=== PATIENT | female | born 1985 ===

== ENCOUNTER 2017-02-11 16:50 | Inpatient (IN) | payer MEDICAID, OTHER, SELFPAY ==
[2017-02-11 19:07] VITALS: BMI 24.7
[2017-02-11 20:12] LABS: BASO % 0.5 % (0.0-2.0); EOS % 0.4 % (0.0-4.0); HEMATOCRIT 34.1 % (34.0-47.0); LYMPH # 2.5 K/uL (1.0-4.3); LYMPH % 31.5 % (20.0-40.0); MEAN CELL VOLUME 77.6 fl (81.0-99.0); MEAN CORPUSCULAR HEMOGLOBIN 24.5 pg (27.0-31.0); MEAN CORPUSCULAR HGB CONC 31.6 g/dL (33.0-37.0); MEAN PLATELET VOLUME 11.1 fl (7.2-11.7); MONO # 0.5 K/uL (0.0-0.8); MONO % 5.7 % (0.0-10.0); NEUT % 61.9 % (50.0-75.0); NRBC % 0.1 % (0.0-0.0); RED CELL DISTRIBUTION WIDTH 16.7 % (11.5-14.5)
[2017-02-11] MEDS ORDERED: Lactated Ringer's 1,000 ML IV SCH (23:45)
[2017-02-11] MEDS ORDERED: Oxytocin 30 units/LR 500ML 30 U/500 ML BAG IV ONE (23:52)
[2017-02-12] MEDS ORDERED: Lidocaine 1% Inj (20ml) ONE (03:27)
[2017-02-12] MEDS ORDERED: Lactated Ringer's 1,000 ML IV SCH (04:27)
--- NOTE | 2017-02-12 09:08 | OBDS ---
DELIVERY PERSONNEL Delivery Doctor: Yulia Kennedy MD Food Safety Technician: Ambika Villa RN MATERNAL INFORMATION Delivery Anesthesia: None Medications in Delivery: NONE Estimated Blood Loss (ml): 200 Placenta Cultured: No Maternal Complications: None Provider Comments: Spontaneous vaginal delivery. Patient delivered viable with Apgars of 9 and 9 at one and 5 minutes respectively. d elivered over intact perineum, no lacerations. Placenta delivered spontaneously. Uterus firm and appr opriately hemostatic following delivery. No complications. Estimated blood loss 200 mL LABOR SUMMARY EDC: 02/24/2017 00:00 No. Babies in Womb: 1 Attempted: No Labor Anesthesia: None LABOR INFORMATION Reason for Induction: Premature Rupture of Membranes Onset of Labor: 02/11/2017 06:00 Complete Dilatation: 02/12/2017 03:26 Oxytocin: N/A Group B Beta Strep: Negative Antibiotics # of Doses: 0 Steroids Given: None Reason Steroids Not Administered: Not Applicable MEMBRANES Membranes Rupture Method: Spontaneous Rupture of Membranes: 02/11/2017 06:00 Length of Rupture (hrs): 21.58 Amniotic Fluid Color: Clear Amniotic Fluid Amount: Moderate Amniotic Fluid Odor: Normal STAGES OF LABOR Stage 1 hrs: 21 Stage 1 min: 26 Stage 2 hrs: 0 Stage 2 min: 9 Stage 3 hrs: 0 Stage 3 min: 3 Total Time in Labor hrs: 21 Total Time in Labor min: 38 VAGINAL DELIVERY Episiotomy: None Laceration Extension: N/A Laceration Type: None Laceration Repair: Not Applicable Initial Vag Sponge Count: 5 Final Vag Sponge Count: 5 Initial Vag Sharps Count: 0 Final Vag Sharps Count: 0 Sponge Count Correct: Yes BABY A INFORMATION Infant Delivery Date/Time: 02/12/2017 03:35 Method of Delivery: Vaginal Born in Route : No : N/A Forceps: N/A Vacuum Extraction: N/A Shoulder Dystocia : No SHOULDER DYSTOCIA BABY A Infant Delivery Date/Time: 02/12/2017 03:35 PRESENTATION/POSITION BABY A Presentation: Cephalic Cephalic Presentation: Vertex Breech Presentation: N/A PLACENTA INFORMATION BABY A Placenta Delivery Time : 02/12/2017 03:38 Placenta Method of Delivery: Spontaneous Placenta Status: Delivered SCORES BABY A Heart Rate 1 min: >100 bpm Resp Effort 1 min: Good Cry Reflex Irritability 1 min: Cough or Sneeze or Pulls Away Muscle Tone 1 min: Active Motion Color 1 min: Body [place], Extremities Blue Resuscitation Effort 1 min: Tactile Stimulation SCORE 1 MIN: 9 Heart Rate 5 min: >100 bpm Resp Effort 5 min: Good Cry Reflex Irritability 5 min: Cough or Sneeze or Pulls Away Muscle Tone 5 min: Active Motion Color 5 min: Body [place], Extremities Blue Resuscitation Effort 5 min: N/A SCORE 5 MIN: 9 INFANT INFORMATION BABY A Gestational Age at Delivery: 38.2 Gestational Status: Term Outcome : Liveborn Infant Condition : Stable Infant Sex: Male IDENTIFICATION/MEDS BABY A ID Band Number: [id number] ID Band Location: Left Leg; Left Arm WEIGHT/LENGTH BABY A Infant Birthweight (gms): 2675 Infant Weight (lb): 5 Infant Weight (oz): 14 CORD INFORMATION BABY A No. Cord Vessels: 3 Nuchal Cord : N/A Suction: Mouth; Nose ASSESSMENT BABY A Infant Complications: None Physical Findings at Delivery: Within Normal Limits Infant Respirations: Appears Normal Solderer Assembler/ALS Called : No Transferred To: Remains with Mother
[2017-02-12] MEDS ORDERED: Influenza Vaccine 18yr & older 0.5 ML/45 MCG SYR IM ONE (09:30)
[2017-02-13] MEDS ORDERED: Influenza Vaccine 18yr & older 0.5 ML/45 MCG SYR IM ONE (10:00)
--- NOTE | 2017-02-13 10:33 | OBPPN ---
Datetime: 02/13/2017 06:33 PP Pain Prov: Within normal limits PP Nausea Prov: Denies PP Flatus Prov: Yes PP BM Prov: Yes PP Breasts Prov: Not Done PP Heart Prov: Normal PP Lungs Prov: Normal PP Abdomen/Uterus Prov: Normal PP Lochia Prov: Normal PP Vulva/Perineum Prov: Not Done PP CVA Tenderness Prov: Normal PP Extremities Prov: Normal PP C/S Incision Prov: Not Applicable PP Progress Prov: Normal PP Impression Prov: Normal progression PP Plan Prov: Continue present management PP Progress Note Prov: 31 y/o now seen and examined at bedside. Patient had uneventful overnig ht. Patient reports mild pelvic pain controlled w/ pain meds. OOB/Ambulating w/o dizziness. Breast /bottle feeding w/o difficulty. Tolerating PO diet well. Lochia is less than menses in volume. Voi ding freely w/ no blood noted. Reports bowel movement. Denies fevers, chills, n/v/d, CP/SOB, lighth eadedness and calf pain. PE: GEN: A_O, resting comfortably in bed, NAD Lung: CTA B/L, no wheezing, rhonchi, or rales CVS: S1, S2 wnl, RRR Abd: +BS, firm fundus below umbilicus. EXT: no edema, negative [place], calves non-tender Assessment: 31 y/o now s/p on 02/12/2017 @ 03:35 tolerating pain w/ medication, tolerati ng oral intake, adequate urine output, doing well on PPD1. Plan: Percocet 5/325 mg 1-2 tabs PO Q6h prn for mod/severe pain. Ibuprofen 600 mg 1 tab Q6h PO pr n for mild pain. Encourage breast feeding and ambulation. Mat Corral M.D. [employer] PGY-1 obh addendum: pt seen _ examined by me. agree w/ above assessment and plan. IP PP Procedures: None Vital Signs Provider PP: Reviewed; Within Normal Limits
[2017-02-13 19:37] LABS: HEMATOCRIT 33.2 % (34.0-47.0); MEAN CELL VOLUME 77.9 fl (81.0-99.0); MEAN CORPUSCULAR HEMOGLOBIN 24.6 pg (27.0-31.0); MEAN CORPUSCULAR HGB CONC 31.6 g/dL (33.0-37.0); RED CELL DISTRIBUTION WIDTH 17.1 % (11.5-14.5); WHITE BLOOD COUNT 10.5 K/uL (4.8-10.8)
--- NOTE | 2017-02-14 08:42 | OBPPN ---
Datetime: 02/14/2017 07:05 PP Pain Prov: Within normal limits PP Nausea Prov: Denies PP Flatus Prov: No PP BM Prov: No PP Heart Prov: Normal PP Lungs Prov: Normal PP Abdomen/Uterus Prov: Normal PP Lochia Prov: Normal PP CVA Tenderness Prov: Normal PP Extremities Prov: Normal PP C/S Incision Prov: Not Applicable PP Progress Prov: Normal PP Impression Prov: Normal progression PP Plan Prov: Continue present management PP Progress Note Prov: 31 y/o now PPD2 seen and examined at bedside. Patient had uneventful ov ernight. Patient reports mild pelvic pain controlled w/ pain meds. OOB/Ambulating w/o dizziness. B reast/bottle feeding w/o difficulty. Tolerating PO diet well. Lochia is less than menses in volume. Voiding freely w/ no blood noted. Reports bowel movement. Denies fevers, chills, n/v/d, CP/SOB, l ightheadedness and calf pain. Assessment: 31 y/o now s/p on 02/12/2017 @ 03:35 tolerating pain w/ medication, tolerati ng oral intake, adequate urine output, doing well on PPD2. Plan: Ibuprofen 600 mg 1 tab Q6h PO prn for mild pain. Encourage breast feeding and ambulation. - PAtient is stable for discharge. Follow up with PMD for baby in 2-3 days. For mother post checkup in 6 weeks. Stewart Aguirre PGY-2 OB Hospitalist Addendum: Pt seen and and examined by me. Agree w/ above. PPD2 s/p , breast an d bottle feeding, doing well. Discharge home today. (ES) IP PP Procedures: None Vital Signs Provider PP: Reviewed; Within Normal Limits
[2017-02-14 19:13] VITALS: BP 134/93; PULSE 55; RESP 20; TEMP 98.4
== END 2017-02-14 15:10 | disposition home or self-care (01) | DRG 775 ==
LOC: H.EROB2 16:50 → H.EROB 17:09 → H.L&D 19:11 → H.EROB2 19:18 → H.OB/GYN 02-12 05:15
PROVIDERS: ADMIT Obstetrics & Gynecology; ATTEND Obstetrics & Gynecology
PROC: 4A1HXCZ Monitoring of Products of Conception, Cardiac Rate, External Approach (ICD-10-PCS; 2017-02-11)
PROC: 10E0XZZ Delivery of Products of Conception, External Approach (ICD-10-PCS; principal; 2017-02-12)
PROC: 3E0234Z Introduction of Serum, Toxoid and Vaccine into Muscle, Percutaneous Approach (ICD-10-PCS; 2017-02-12)
DX: O80 Encounter for full-term uncomplicated delivery (principal); Z23 Encounter for immunization; Z37.0 Single live birth; Z3A.38 38 weeks gestation of pregnancy